=== PATIENT | male | born 1975 | race African-American/Black ===

== ENCOUNTER 2016-10-16 20:49 | Emergency (ER) | payer OTHER ==
[2016-10-16 21:04] VITALS: BP 144/89; PULSE 89; TEMP 98.9; BMI 32.1
--- NOTE | 2016-10-16 21:56 | PDOC ---
History of Present Illness - General Chief Complaint: Pain, Acute Stated Complaint: INFECTION Time Seen by Provider: 10/16/16 21:40 History Source: Patient Exam Limitations: No Limitations - History of Present Illness Initial Comments: 10/16/16 21:54 41-year-old male presents to the emergency department complaining of slight redness and a nodule to the right axilla region and right anterior upper thigh. Patient states he noticed the development of what appears to be an ingrown hair after shaving his armpit. Patient denies any fever, chills, nausea/vomiting, chest pain, shortness of breath, abdominal pains, extremity numbness or tingling sensation. Patient has been well and denied any other complaints. Timing/Duration: 4-6 hours Modifying Factors: worse with: cold therapy Associated Symptoms: reports: denies symptoms Past History - Past Medical History Allergies/Adverse Reactions: Allergies Allergy/AdvReac Type Severity Reaction Status Date / Time No Known Allergies Allergy Verified 10/16/16 21:01 Home Medications: Ambulatory Orders NK [No Known Home Medication] 10/16/16 Other medical history: denies - Immunization History Immunization Up to Date: Yes - Psycho/Social/Smoking Cessation Hx Anxiety: No Suicidal Ideation: No Smoking History: Current some day smoker Information on smoking cessation initiated: No Hx Alcohol Use: No Substance Use Type: None Review of Systems - Review of Systems Able to Perform ROS?: Yes Comments:: 10/16/16 21:53 CONSTITUTIONAL: Absent: fever, chills, diaphoresis, generalized weakness, malaise, loss of appetite HEENT: Absent: rhinorrhea, nasal congestion, throat pain, throat swelling, difficulty swallowing, mouth swelling, ear pain, eye pain, visual Changes CARDIOVASCULAR: Absent: chest pain, loss of consciousness, palpitations, irregular heart rate, peripheral edema RESPIRATORY: Absent: cough, shortness of breath, dyspnea with exertion, orthopnea, wheezing, stridor, hemoptysis GASTROINTESTINAL: Absent: abdominal pain, abdominal distension, nausea, vomiting, diarrhea, constipation, melena, hematochezia GENITOURINARY: Absent: dysuria, frequency, urgency, hesitancy, hematuria, flank pain, genital pain MUSCULOSKELETAL: Absent: myalgia, arthralgia, joint swelling SKIN: +early abscess to right axilla and ant innter upper thigh Absent: rash, itching, pallor HEMATOLOGIC/IMMUNOLOGIC: Absent: easy bleeding, easy bruising, lymphadenopathy, frequent infections ENDOCRINE: Absent: unexplained weight gain, unexplained weight loss, heat intolerance, cold intolerance NEUROLOGIC: Absent: headache, focal weakness or paresthesias, dizziness, unsteady gait, seizure, mental status changes, bladder or bowel incontinence PSYCHIATRIC: Absent: anxiety, depression, suicidal or homicidal ideation, hallucinations. Is the patient limited [place] proficient: No *Physical Exam - Vital Signs Last Vital Signs Temp Pulse Resp BP Pulse Ox 98.9 F 89 18 144/89 98 10/16/16 21:02 10/16/16 21:02 10/16/16 21:02 10/16/16 21:02 10/16/16 21:02 - Physical Exam Comments: 10/16/16 21:53 GENERAL: Well developed, well nourished. Awake and alert. No acute distress. HEENT: Normocephalic, atraumatic. PERRLA, EOMI. No conjunctival pallor. Sclera are non- icteric. Moist mucous membranes. Oropharynx is clear. NECK: Supple. Full ROM. No JVD. Carotid pulses 2+ and symmetric, without bruits. No thyromegaly. No lymphadenopathy. CARDIOVASCULAR: Regular rate and rhythm. No murmurs, rubs, or gallops. Distal pulses are 2+ and symmetric. PULMONARY: No evidence of respiratory distress. Lungs clear to auscultation bilaterally. No wheezing, rales or rhonchi. ABDOMINAL: Soft. Non-tender. Non-distended. No rebound or guarding. No organomegaly. Normoactive bowel sounds. MUSCULOSKELETAL Normal range of motion at all joints. No bony deformities or tenderness. No CVA tenderness. EXTREMITIES: No cyanosis. No clubbing. No edema. No calf tenderness. SKIN: Induration without drainage or fluctuance to the right axilla region/right anterior upper thigh Warm and dry. Normal capillary refill. No rashes. No jaundice. NEUROLOGICAL: Alert, awake, appropriate. Cranial nerves 2-12 intact. No deficits to light touch and temperature in face, upper extremities and lower extremities. No motor deficits in the in face, upper extremities and lower extremities. Normoreflexic in the upper and lower extremities. Normal speech. Toes are down- going bilaterally. Gait is normal without ataxia. PSYCHIATRIC: Cooperative. Good eye contact. Appropriate mood and affect. *DC/Admit/Observation/Transfer Diagnosis at time of Disposition: Induration of skin - Discharge Dispostion Disposition: HOME Condition at time of disposition: Stable - Referrals Referrals: Chey Gray [Primary Care Provider] - - Patient Instructions Additional Instructions: Bactrim DS as prescribed Warm compresses to right armpit and right thigh Tylenol as needed for pain Return to the ER for severe/persistent/worsening symptoms
[2016-10-16] MEDS ORDERED: SULFAMETHOXAZOLE/TRIMETHOPRIM 800MG/160MG D.S. TABLET PO ONE (21:58)
[2016-10-16] MEDS ORDERED: SULFAMETHOXAZOLE/TRIMETHOPRIM 800MG/160MG D.S. TABLET ONE (22:24)
== END 2016-10-16 22:26 | disposition home or self-care (01) ==
LOC: JERFT 20:49
DX: R23.4 Changes in skin texture (principal); F17.210 Nicotine dependence, cigarettes, uncomplicated
CPT/HCPCS: 99281-25